=== PATIENT | female | born 2000 | race African-American/Black ===

== ENCOUNTER 2020-06-26 02:42 | Emergency (ER) | payer SELFPAY ==
[~2020-06-26] VITALS: Ht 165.1 cm; Wt 77.3 kg
[2020-06-26 02:44] VITALS: TEMP 97.4
[2020-06-26] MEDS ORDERED: CLEOCIN HC150 MG/CAP PO (03:51)
[2020-06-26] MEDS ORDERED: VOLTAREN 75 DR75 MG PO (03:51)
[2020-06-26 04:04] VITALS: BP 130/70; PULSE 62
== END 2020-06-26 04:04 | disposition home or self-care (01) ==
LOC: COL.ER 02:42
DX: S02.5XXA Fracture of tooth (traumatic), initial encounter for closed fracture (principal); S01.511A Laceration without foreign body of lip, initial encounter; W18.2XXA Fall in (into) shower or empty bathtub, initial encounter; Y93.01 Activity, walking, marching and hiking